=== PATIENT | female | born 1985 | race Caucasian/White ===

== ENCOUNTER 2018-12-02 03:24 | Emergency (ER) | payer BC ==
[~2018-12-02] VITALS: Ht 160 cm; Wt 70.3 kg
[2018-12-02] MEDS ORDERED: ONDANSETRON ODT 4 MG TAB.RAPDIS. PO ONE (03:45)
[2018-12-02] MEDS ORDERED: FAMOTIDINE 20 MG TABLET. PO ONE (03:45)
--- NOTE | 2018-12-02 04:40 | PHYS DOC ---
Past Medical History Past Medical History: Diabetes-Type I, High Cholesterol, Hypertension Past Surgical History: Cholecystectomy Alcohol Use: Occasionally Drug Use: Marijuana Adult General Chief Complaint Chief Complaint: ALCOHOL INTOXICATION HPI HPI Patient is a 33 year old female who presents with alcohol intoxication after consuming a large quantity of alcohol prior to ED arrival. No reported seizure, apneic, unresponsive episodes. No reported vomiting, hematemesis prior to ED arrival. Blood sugar checked by EMS was 107. Patient is visiting from out of town was with and 7-year-old when EMS were contacted. [] Review of Systems Review of Systems Reports as per history of present illness. Limited due to alcohol All other systems were reviewed and found to be within normal limits, except as documented in this note. Current Medications Current Medications Current Medications Medications (Trade) Dose Ordered Sig/Raquel Start Time Stop Time Status Last Admin Dose Admin Famotidine (Pepcid) 20 mg 1X ONCE 12/02/18 03:45 12/02/18 04:06 DC 12/02/18 03:45 20 MG Ondansetron HCl (Zofran Odt) 4 mg 1X ONCE 12/02/18 03:45 12/02/18 04:07 DC 12/02/18 03:45 4 MG Allergies Allergies Allergies Coded Allergies Type Severity Reaction Last Updated Verified shellfish derived Allergy Severe ANAPHYLAXIS 12/02/18 Yes gluten Allergy Intermediate GI UPSET 12/02/18 Yes Physical Exam Physical Exam Constitutional: Well developed, well nourished, no acute distress, non-toxic appearance. Smells of EtOH intoxicants. [] HENT: Normocephalic, atraumatic, bilateral external ears normal, oropharynx moist, no oral exudates, nose normal. [] Eyes: PERRLA, EOMI, conjunctiva, injected.[] Neck: Normal range of motion. [] Cardiovascular:Heart rate regular rhythm, no murmur [] Lungs & Thorax: Bilateral breath sounds clear to auscultation [] Abdomen: Bowel sounds normal, soft, no tenderness. [] Skin: Warm, dry, no erythema. [] Back: No tenderness. [] Neurologic: Somewhat, alerts tactile and verbal stimulation, normal motor function, normal sensory function, no focal deficits noted. [] Current Patient Data Vital Signs Vital Signs Date Time Temp Pulse Resp B/P (MAP) Pulse Ox O2 Delivery O2 Flow Rate FiO2 12/02/18 04:00 76 16 110/68 (82) 98 Room Air 12/02/18 03:30 97.7 97.7 EKG EKG [] Radiology/Procedures Radiology/Procedures [] Course & Med Decision Making Course & Med Decision Making Pertinent Labs and Imaging studies reviewed. (See chart for details) Patient placed on monitored, stable vital signs throughout ED stay. No vomiting observed. Alerts to tactile and verbal stimulation. Recommend supportive care. Patient to be discharged home to custody of spouse.] Dragon Disclaimer Dragon Disclaimer This electronic medical record was generated, in whole or in part, using a voice recognition dictation system. Departure Departure Impression: Primary Impression: Alcohol abuse Disposition: HOME, SELF-CARE Condition: IMPROVED Referrals: NO PCP (PCP) Patient Instructions: Alcohol Intoxication, [id number] Additional Instructions: Go home and go straight to bed. Avoid excessive alcohol intake and follow up with out patient rehab. Scripts Ondansetron Hcl (ZOFRAN) 4 Mg Tablet 1 TAB PO Q6HRS, #5 TAB 0 Refills Prov: LEXY DOUGHERTY DO 12/02/18 LEXY DOUGHERTY DO Dec 02, 2018 04:40
[2018-12-02] MEDS ORDERED: ONDA4TAB7 PO (04:43)
[2018-12-02 04:45] VITALS: BP 102/56
== END 2018-12-02 05:00 | disposition home or self-care (01) ==
LOC: ER 03:24
DX: F10.129 Alcohol abuse with intoxication, unspecified (principal); Y90.9 Presence of alcohol in blood, level not specified; E10.9 Type 1 diabetes mellitus without complications; E78.00 Pure hypercholesterolemia, unspecified; I10 Essential (primary) hypertension; Z90.49 Acquired absence of other specified parts of digestive tract
CPT/HCPCS: 99283; Q0162